=== PATIENT | female | born 1995 ===

== ENCOUNTER 2020-06-27 20:51 | Outpatient (REF) | payer MEDICAID, SELFPAY | END 2020-06-27 21:11 | LOC: NCHCN 20:51 | PROVIDERS: PCP Nurse Practitioner Community Health; Visit Provider Nurse Practitioner Community Health | DX: R10.31 Right lower quadrant pain (principal) | CPT/HCPCS: 87077; 87086; 87186 ==

== ENCOUNTER 2020-07-04 19:40 | Outpatient (REF) | payer MEDICAID, SELFPAY ==
[2020-07-04 21:09] LABS: HCT 41.4 % (36.0-46.0); HGB 13.5 g/dL (11.2-15.7); MCH 29.5 pg (27.0-33.0); MCHC 32.6 % (32.0-36.0); MCV 90.4 fL (80-95); MPV 9.8 fL (8.0-11.0); Platelet Count 403 10^3/uL (130-400); RBC 4.58 10^6/uL (3.93-5.22); RDW 12.3 % (11.7-14.6); RDW-SD 40.3 fL
[2020-07-04 21:31] LABS: TSH (W/Ref FT4) 0.68 uIU/mL (0.36-3.74)
[2020-07-04 21:44] LABS: Vitamin D 25 Total 33.4 ng/ml (30-100)
== END 2020-07-04 20:00 ==
LOC: NCHCN 19:40
PROVIDERS: PCP Nurse Practitioner Community Health; Visit Provider Nurse Practitioner Community Health
DX: F41.8 Other specified anxiety disorders (principal)
CPT/HCPCS: 82306; 85027; 84443

== ENCOUNTER 2020-07-25 21:24 | Outpatient (REF) | payer MEDICAID, SELFPAY | END 2020-07-25 21:44 | LOC: NCHCN 21:24 | PROVIDERS: PCP Nurse Practitioner Community Health; Visit Provider Nurse Practitioner Community Health | DX: R10.31 Right lower quadrant pain (principal) | CPT/HCPCS: 87077; 87086; 87186 ==